=== PATIENT | male | born 1950 | race Caucasian/White ===

== ENCOUNTER 2017-04-14 12:17 | Emergency (ER) | payer OTHER ==
[2017-04-14 12:18] VITALS: BMI 32.3
[2017-04-14 12:27] VITALS: BP 106/63; PULSE 72; TEMP 97.7; O2SAT 97
--- NOTE | 2017-04-14 13:13 | C.PDOC ---
History Of Present Illness NEW ONSET "LUMP" IN RECTAL AREA X SEV DAYS. +PAIN TO AREA. NO BLEEDING. DENIES CONSTIPATION, ABD PAIN, OTHER SX EXAM NAD RECTAL +HEMORRHOID NONTHROMBOSED. NO BLEED. REMAINDER NEG Time Seen by Provider: 04/14/17 13:04 Chief Complaint (Nursing): GI Problem History Per: Patient History/Exam Limitations: no limitations Onset/Duration Of Symptoms: Days (several) Past Medical History Reviewed: Historical Data, Nursing Documentation, Vital Signs Vital Signs: Last Vital Signs Temp 97.7 F 04/14/17 12:24 Pulse 72 04/14/17 12:24 Resp 18 04/14/17 12:24 BP 106/63 04/14/17 12:24 Pulse Ox 97 04/14/17 13:13 - Medical History PMH: Hypercholesterolemia Surgical History: Endoscopy - [facility] Procedures COLONOSCOPY (02/11/14) ENDOSC POLYPECTOMY OF LG INTEST (10/13/12) ESOPHAGOGASTRODUODENOSCOPY [EGD] W/CLOSED BIOPSY (07/19/13) Family History: States: No Known Family Hx - Social History Hx Alcohol Use: No Hx Substance Use: No - Immunization History Hx Tetanus Toxoid Vaccination: No Hx Influenza Vaccination: No Hx Pneumococcal Vaccination: No Review Of Systems Except As Marked, All Systems Reviewed And Found Negative. Gastrointestinal: Positive for: Rectal Pain (rectal pain with "lump"). Negative for: Vomiting, Abdominal Pain, Diarrhea, Constipation Genitourinary: Negative for: Dysuria Neurological: Negative for: Weakness Physical Exam - Physical Exam Appears: Non-toxic, No Acute Distress Skin: Warm, Dry, No Rash Head: Atraumatic, Normacephalic Oral Mucosa: Moist Respiratory: Normal Breath Sounds Rectal: Hemorrhoids (nonthrombosed, no bleeding) Back: Normal Inspection, No CVA Tenderness Extremity: Normal ROM, No Swelling Neurological/Psych: Oriented x3, Normal Speech, Normal Motor ED Course And Treatment O2 Sat by Pulse Oximetry: 97 (RA) Pulse Ox Interpretation: Normal Disposition Counseled Patient/Family Regarding: Diagnosis, Need For Followup, Rx Given - Disposition Referrals: YOUR,PMD [Other] Disposition: HOME/ ROUTINE Disposition Time: 13:11 Condition: GOOD Prescriptions: Docusate Sodium [Colace] 100 mg PO BID PRN #30 capsule PRN Reason: Constipation Hydrocortisone [Proctosol-Hc] 28.35 gm TP TID PRN #1 [email or web address] PRN Reason: Hemorrhoids Instructions: Hemorrhoids (ED) Forms: [facility] (Italian) - Clinical Impression Clinical Impression: Hemorrhoids - Scribe Statement The provider has reviewed the documentation as recorded by the Lazaroibe Zhanna Peter Provider Attestation: All medical record entries made by the Lazaroibxochitl were at my direction and personally dictated by me. I have reviewed the chart and agree that the record accurately reflects my personal performance of the history, physical exam, medical decision making, and the department course for this patient. I have also personally directed, reviewed, and agree with the discharge instructions and disposition.
[2017-04-14 13:26] VITALS: RESP 16
== END 2017-04-14 13:25 | disposition home or self-care (01) ==
LOC: C.ER 12:17
DX: K64.9 Unspecified hemorrhoids (principal)

== ENCOUNTER 2018-04-06 12:00 | Emergency (ER) | payer OTHER ==
[2018-04-06 12:00] VITALS: BMI 32.3
[2018-04-06 12:10] VITALS: RESP 18
[2018-04-06 13:01] LABS: EOS % 0.1 % (0.0-4.0); HEMOGLOBIN 14.4 g/dL (12.0-18.0); LYMPH # 0.8 K/uL (1.0-4.3); MONO # 0.6 K/uL (0.0-0.8); NEUT # 0.8 K/uL (1.8-7.0); WHITE BLOOD COUNT 2.3 K/uL (4.8-10.8)
--- NOTE | 2018-04-06 13:01 | RAD ---
Date of service: 04/06/2018 HISTORY: cough COMPARISON: 01/20/2017 TECHNIQUE: Chest PA and lateral FINDINGS: LUNGS: No active pulmonary disease. PLEURA: No significant pleural effusion identified. No pneumothorax apparent. CARDIOVASCULAR: No aortic atherosclerotic calcification present. Normal cardiac size. No pulmonary vascular congestion. OSSEOUS STRUCTURES: No significant abnormalities. VISUALIZED UPPER ABDOMEN: Normal. OTHER FINDINGS: None. IMPRESSION: No active disease.
[2018-04-06 13:08] LABS: SQUAMOUS EPITHIAL 1 /hpf (0-5); URINE BILIRUBIN NEGATIVE (NEGATIVE); URINE BLOOD NEGATIVE (NEGATIVE); URINE CLARITY Hazy (Clear); URINE COLOR Amber (YELLOW); URINE GLUCOSE (UA) NORMAL (Normal); URINE LEUKOCYTE ESTERASE NEG Leu/uL (Negative); URINE PROTEIN NEGATIVE (NEGATIVE); URINE UROBILINOGEN NORMAL mg/dL (0.2-1.0)
[2018-04-06 13:13] LABS: BASO % 0.2 % (0.0-2.0); LYMPH % 36.3 % (20.0-40.0); MEAN CELL VOLUME 90.9 fL (80.0-94.0); MEAN CORPUSCULAR HEMOGLOBIN 29.9 pg (27.0-31.0); MEAN CORPUSCULAR HGB CONC 32.9 g/dL (33.0-37.0); MEAN PLATELET VOLUME 7.4 fL (7.2-11.7); MONO % 28.3 % (0.0-10.0); NEUT % 35.1 % (50.0-75.0); PLATELET COUNT 159 K/uL (130-400); RBC 4.82 Mil/uL (4.40-5.90); RED CELL DISTRIBUTION WIDTH 13.6 % (11.5-14.5)
[2018-04-06 13:19] LABS: ALB/GLOB RATIO 1.5 (1.0-2.1); ALBUMIN 4.3 g/dL (3.5-5.0); ALT/SGPT 41 U/L (21-72); AST/SGOT 34 U/L (17-59); BLOOD UREA NITROGEN 16 mg/dL (9-20); CALCIUM 9.1 mg/dl (8.6-10.4); GFR NON-AFRICAN AMERICAN > 60
[2018-04-06 13:28] LABS: B-TYPE NATRIURETIC PEPTIDE 22.1 pg/mL (0-900)
--- NOTE | 2018-04-06 13:50 | C.PDOC ---
History Of Present Illness 67 y/o male presents to the ER complaining of cough and nasal congestion which has been present for the past 3 days. Patient states that the cough is non- productive. Patient reports that he has some chest discomfort. He notes that he has chest discomfort after he coughs. Denies having SOB, fever, chills, recent travel, hx of diabetes, HTN, PE/DVT, and family history of heart disease. Time Seen by Provider: 04/06/18 12:19 Chief Complaint (Nursing): Chest Pain History Per: Patient History/Exam Limitations: no limitations Onset/Duration Of Symptoms: Days Current Symptoms Are (Timing): Still Present Severity: Moderate Past Medical History Reviewed: Historical Data, Nursing Documentation, Vital Signs Vital Signs: Last Vital Signs Temp 98.1 F 04/06/18 12:07 Pulse 69 04/06/18 12:35 Resp 18 04/06/18 12:35 BP 119/70 04/06/18 12:35 Pulse Ox 96 04/06/18 12:07 - Medical History PMH: Hypercholesterolemia Denies: Chronic Kidney Disease Surgical History: Endoscopy - [facility] Procedures COLONOSCOPY (02/11/14) ENDOSC POLYPECTOMY OF LG INTEST (10/13/12) ESOPHAGOGASTRODUODENOSCOPY [EGD] W/CLOSED BIOPSY (07/19/13) Family History: States: No Known Family Hx - Social History Hx Alcohol Use: No Hx Substance Use: No - Immunization History Hx Tetanus Toxoid Vaccination: No Hx Influenza Vaccination: No Hx Pneumococcal Vaccination: No Review Of Systems Except As Marked, All Systems Reviewed And Found Negative. Constitutional: Negative for: Fever, Chills ENT: Positive for: Nose Congestion Cardiovascular: Positive for: Chest Pain Respiratory: Positive for: Cough. Negative for: Shortness of Breath Gastrointestinal: Negative for: Nausea, Vomiting Physical Exam - Physical Exam Appears: Non-toxic, No Acute Distress Skin: Normal Color, Warm, Dry Head: Atraumatic, Normacephalic Eye(s): bilateral: Normal Inspection Nose: Normal Oral Mucosa: Moist Throat: Normal, No Erythema, No Exudate Neck: Supple Chest: Symmetrical Cardiovascular: Rhythm Regular Respiratory: Normal Breath Sounds, No Rales, No Rhonchi, No Wheezing Gastrointestinal/Abdominal: Soft, No Tenderness, No Guarding, No Rebound Neurological/Psych: Oriented x3, Normal Speech ED Course And Treatment - Laboratory Results Result Diagrams: 04/06/18 12:57 04/06/18 12:57 ECG: Interpreted By Me, Viewed By Me ECG Rhythm: Sinus Rhythm Interpretation Of ECG: NSR with normal intervals, left axis deviation, and no ST/T wave abnormalities Rate From EC O2 Sat by Pulse Oximetry: 96 (RA) Pulse Ox Interpretation: Normal - Radiology CXR: Interpreted by Me, Viewed By Me CXR Interpretation: Yes: No Acute Disease Medical Decision Making Medical Decision Making: Assessment: Chest Pain Plan: --Lab --ECG --CXR --UA Updates: 14:08 Patient has ANC 800. Patient has been administered for Aspirin. 14:15 Case discussed with PMD .Case discussed with hospitalist Dr.N Arredondo.Patient has been admitted to [facility] under Dr. Sarah Arredondo. Disposition Discussed With Dr.: Sterling Arredondo Doctor Will See Patient In The: Hospital Counseled Patient/Family Regarding: Studies Performed, Diagnosis - Disposition Disposition: HOSPITALIZED Disposition Time: 14:16 Condition: FAIR - Clinical Impression Clinical Impression: Chest pain, Leukopenia - Scribe Statement The provider has reviewed the documentation as recorded by the Lazaroibe Karla Colon Provider Attestation: All medical record entries made by the Lazaroibe were at my direction and personally dictated by me. I have reviewed the chart and agree that the record accurately reflects my personal performance of the history, physical exam, medical decision making, and the department course for this patient. I have also personally directed, reviewed, and agree with the discharge instructions and disposition.
[2018-04-06] MEDS ORDERED: Aspirin 325 mg EC Tablets PO STA (14:08)
[2018-04-06] MEDS ORDERED: Aspirin 325 mg EC Tablets PO ONE (14:17)
[2018-04-06 14:21] LABS: LYMPHOCYTE 42 % (20-40); MONOCYTE 18 % (0-10); NEUTROPHIL 40 % (50-75); PLATELET ESTIMATE NORMAL (NORMAL); TOTAL CELLS COUNTED 100
--- NOTE | 2018-04-06 14:43 | CP.PCM.HP ---
History of Present Illness - History of Present Illness History of Present Illness: PGY-[address] Galvez Patient is a 67 year old male with PMHx HLD, BPH who presents with cough/congestion and chest pain that resolved. Patient states he has had the "flu" since Friday, and has been experiencing dry cough and general myalgias. Today he states he had some chest pain that he could not exactly described, but did notice it going to the back as well. He does think it was maybe made worse moving arm around. Chest pain has resolved at present. Denies sick contacts or recent travel. Denies fevers. PMHx: BPH, hypercholesteremia, inguinal hernia Surgical History: Colonoscopy (02/11/14), EGD Polypectomy (10/13/12), EGD with bx (07/19/13) Allergies: Flagyl Social: Never smoker or drinking, no drug use. Lives alone, works at [employer] Family Hx: Dad - HTN, prostate issue Medications: Atorvastatin 10mg HS, tamsulosin 0.4mg PO BID, finasteride 5 mg daily, meloxicam 25mg PO daily PMD: Dr. Gates (patient's cousin) Present on Admission - Present on Admission Any Indicators Present on Admission: No Review of Systems - Constitutional Constitutional: Malaise. absent: Chills, Fever - EENT Ears: absent: Disequilibrium, Dizziness Nose/Mouth/Throat: absent: Nasal Congestion, Nasal Discharge - Cardiovascular Cardiovascular: Chest Pain (resolved), Chest Pain at Rest (resolved). absent: Chest Pain with Activity, Edema, Pain Radiating to Arm/Neck/Jaw, Palpitations - Respiratory Respiratory: Cough, Chest Congestion. absent: Dyspnea, Hemoptysis, Wheezing, Excessive Mucous Production, Change in Mucous Color - Gastrointestinal Gastrointestinal: absent: Abdominal Pain, Belching, Bloating, Constipation - Genitourinary Genitourinary: Urinary Hesitance (hx BPH). absent: Dysuria - Musculoskeletal Musculoskeletal: Myalgias. absent: Back Pain - Neurological Neurological: absent: Abnormal Gait, Dizziness, Numbness, Headaches - Psychiatric Psychiatric: absent: Anxiety, Depression - Endocrine Endocrine: absent: Palpitations, Polyuria Past Patient History - Infectious Disease Hx of Infectious Diseases: None - Past Medical History & Family History Past Medical History?: Yes - Past Social History Smoking Status: Never Smoked - CARDIAC Hx Hypercholesterolemia: Yes - PULMONARY Hx Respiratory Disorders: No - NEUROLOGICAL Hx Neurological Disorder: No - HEENT Hx HEENT Problems: No - RENAL Hx Chronic Kidney Disease: No - ENDOCRINE/METABOLIC Hx Endocrine Disorders: No - HEMATOLOGICAL/ONCOLOGICAL Hx Blood Disorders: No - INTEGUMENTARY Hx Dermatological Problems: No - MUSCULOSKELETAL/RHEUMATOLOGICAL Hx Musculoskeletal Disorders: No - GASTROINTESTINAL Hx Gastrointestinal Disorders: No - GENITOURINARY/GYNECOLOGICAL Hx Genitourinary Disorders: Yes Hx Prostate Problems: Yes (ENLARGED) - PSYCHIATRIC Hx Substance Use: No - SURGICAL HISTORY Other/Comment: colonscopy 03/2017 - ANESTHESIA Hx Anesthesia: Yes Hx Anesthesia Reactions: No Hx Malignant Hyperthermia: No Meds Home Medications: Home Medication List Medication Instructions Recorded Confirmed Type Acetaminophen [Tylenol 325mg tab] 650 mg PO Q6 PRN tab 04/06/18 Rx Oseltamivir Cap [Tamiflu Cap] 75 mg PO BID capsule 04/06/18 Rx Oseltamivir Phosphate [Tamiflu] 75 mg PO BID #14 capsule 04/06/18 Rx Oseltamivir Phosphate [Tamiflu] 75 mg PO BID #14 capsule 04/06/18 Rx Allergies/Adverse Reactions: Allergies Allergy/AdvReac Type Severity Reaction Status Date / Time metronidazole [From Flagyl] Allergy Verified 02/02/17 11:14 Physical Exam - Head Exam Head Exam: ATRAUMATIC, NORMAL INSPECTION - Eye Exam Eye Exam: EOMI, Normal appearance - ENT Exam ENT Exam: Mucous Membranes Moist - Respiratory Exam Respiratory Exam: Clear to Auscultation Bilateral, NORMAL BREATHING PATTERN. absent: Rhonchi, Wheezes - Cardiovascular Exam Cardiovascular Exam: REGULAR RHYTHM, RRR, +S1, +S2 Additional comments: No chest pain at time of exam, no tenderness to palpation - GI/Abdominal Exam GI & Abdominal Exam: Normal Bowel Sounds, Soft. absent: Tenderness - Extremities Exam Extremities exam: Positive for: normal inspection. Negative for: pedal edema, tenderness - Neurological Exam Neurological exam: Alert, CN II-XII Intact, Oriented x3 - Psychiatric Exam Psychiatric exam: Normal Affect, Normal Mood - Skin Skin Exam: Dry, Intact, Normal Color Results - Vital Signs Recent Vital Signs: Last Vital Signs Temp 98.1 F 04/06/18 14:19 Pulse 62 04/06/18 14:19 Resp 18 04/06/18 14:19 BP 131/78 04/06/18 14:19 Pulse Ox 96 04/06/18 14:40 - Labs Result Diagrams: 04/06/18 12:57 04/06/18 12:57 Labs: Laboratory Results - last 24 hr 04/06/18 04/06/18 04/06/18 12:57 12:57 12:57 WBC 2.3 L RBC 4.82 Hgb 14.4 Hct 43.8 MCV 90.9 MCH 29.9 MCHC 32.9 L RDW 13.6 Plt Count 159 MPV 7.4 Neut % (Auto) 35.1 L Lymph % (Auto) 36.3 [place] % (Auto) 28.3 H Eos % (Auto) 0.1 Baso % (Auto) 0.2 Neut # (Auto) 0.8 L Lymph # (Auto) 0.8 L [place] # (Auto) 0.6 Eos # (Auto) 0.0 Baso # (Auto) 0.0 Neutrophils % (Manual) 40 L Lymphocytes % (Manual) 42 H Monocytes % (Manual) 18 H Platelet Estimate Normal RBC Morphology Normal Sodium 136 Potassium 4.5 Chloride 99 Carbon Dioxide 29 Anion Gap 12 BUN 16 Creatinine 0.7 L Est GFR ( Amer) > 60 Est GFR (Non-Af Amer) > 60 Random Glucose 115 H Calcium 9.1 Total Bilirubin 0.7 AST 34 ALT 41 Alkaline Phosphatase 60 Troponin I < 0.0120 NT-Pro-B Natriuret Pep 22.1 Total Protein 7.1 Albumin 4.3 Globulin 2.9 Albumin/Globulin Ratio 1.5 Urine Color [place] Urine Clarity Hazy Urine pH 5.0 Ur Specific [place] 1.032 H Urine Protein Negative Urine Glucose (UA) Normal Urine Ketones Trace Urine Blood Negative Urine Nitrate Negative Urine Bilirubin Negative Urine Urobilinogen Normal Ur Leukocyte Esterase Neg Urine WBC (Auto) 2 Urine RBC (Auto) 2 Ur Squamous Epith Cells 1 Assessment & Plan - Assessment and Plan (Free Text) Assessment: 67 year old male with chest pain, influenza A 1) Influenza A - Positive influenza A test - Patient signed out AMA from ED - Given rx 7 days Tamiflu 7mg PO BID 2) Sinus arrythmia on initial EKG - Repeat EKG normal sinus. Enzymes negative. - Patient signed out AMA. Advised to follow up immediately with PMD 3) PPx - Patient AMA Discussed with Dr. Lenny Contreras, PGY-1
[2018-04-06 16:16] VITALS: BP 136/83; PULSE 68; TEMP 98.2
--- NOTE | 2018-04-06 16:20 | CP.PCM.DIS ---
Provider - Provider Date of Admission: 04/06/18 14:15 Attending physician: Sterling Arredondo MD Time Spent in preparation of Discharge (in minutes): 45 Diagnosis - Discharge Diagnosis (1) Influenza A Status: Acute (2) Chest pain Status: Acute Hospital Course - Lab Results Lab Results: Most Recent Lab Values WBC 2.3 K/uL (4.8-10.8) L 04/06/18 12:57 RBC 4.82 Mil/uL (4.40-5.90) 04/06/18 12:57 Hgb 14.4 g/dL (12.0-18.0) 04/06/18 12:57 Hct 43.8 % (35.0-51.0) 04/06/18 12:57 MCV 90.9 fL (80.0-94.0) 04/06/18 12:57 MCH 29.9 pg (27.0-31.0) 04/06/18 12:57 MCHC 32.9 g/dL (33.0-37.0) L 04/06/18 12:57 RDW 13.6 % (11.5-14.5) 04/06/18 12:57 Plt Count 159 K/uL (130-400) 04/06/18 12:57 MPV 7.4 fL (7.2-11.7) 04/06/18 12:57 Neut % (Auto) 35.1 % (50.0-75.0) L 04/06/18 12:57 Lymph % (Auto) 36.3 % (20.0-40.0) 04/06/18 12:57 [place]nn % (Auto) 28.3 % (0.0-10.0) H 04/06/18 12:57 Eos % (Auto) 0.1 % (0.0-4.0) 04/06/18 12:57 Baso % (Auto) 0.2 % (0.0-2.0) 04/06/18 12:57 Neut # (Auto) 0.8 K/uL (1.8-7.0) L 04/06/18 12:57 Lymph # (Auto) 0.8 K/uL (1.0-4.3) L 04/06/18 12:57 Glynn # (Auto) 0.6 K/uL (0.0-0.8) 04/06/18 12:57 Eos # (Auto) 0.0 K/uL (0.0-0.7) 04/06/18 12:57 Baso # (Auto) 0.0 K/uL (0.0-0.2) 04/06/18 12:57 Neutrophils % (Manual) 40 % (50-75) L 04/06/18 12:57 Lymphocytes % (Manual) 42 % (20-40) H 04/06/18 12:57 Monocytes % (Manual) 18 % (0-10) H 04/06/18 12:57 Platelet Estimate Normal (NORMAL) 04/06/18 12:57 RBC Morphology Normal 04/06/18 12:57 Sodium 136 mmol/L (132-148) 04/06/18 12:57 Potassium 4.5 mmol/L (3.6-5.2) 04/06/18 12:57 Chloride 99 mmol/L (98-107) 04/06/18 12:57 Carbon Dioxide 29 mmol/L (22-30) 04/06/18 12:57 Anion Gap 12 (10-20) 04/06/18 12:57 BUN 16 mg/dL (9-20) 04/06/18 12:57 Creatinine 0.7 mg/dL (0.8-1.5) L 04/06/18 12:57 Est GFR ( Amer) > 60 04/06/18 12:57 Est GFR (Non-Af Amer) > 60 04/06/18 12:57 Random Glucose 115 mg/dL (75-110) H 04/06/18 12:57 Calcium 9.1 mg/dl (8.6-10.4) 04/06/18 12:57 Total Bilirubin 0.7 mg/dL (0.2-1.3) 04/06/18 12:57 AST 34 U/L (17-59) 04/06/18 12:57 ALT 41 U/L (21-72) 04/06/18 12:57 Alkaline Phosphatase 60 U/L (38-126) 04/06/18 12:57 Troponin I < 0.0120 ng/mL (0.00-0.120) 04/06/18 12:57 NT-Pro-B Natriuret Pep 22.1 pg/mL (0-900) 04/06/18 12:57 Total Protein 7.1 g/dL (6.3-8.3) 04/06/18 12:57 Albumin 4.3 g/dL (3.5-5.0) 04/06/18 12:57 Globulin 2.9 gm/dL (2.2-3.9) 04/06/18 12:57 Albumin/Globulin Ratio 1.5 (1.0-2.1) 04/06/18 12:57 Urine Color [place] (YELLOW) 04/06/18 12:57 Urine Clarity Hazy (Clear) 04/06/18 12:57 Urine pH 5.0 (5.0-8.0) 04/06/18 12:57 Ur Specific [place] 1.032 (1.003-1.030) H 04/06/18 12:57 Urine Protein Negative mg/dL (NEGATIVE) 04/06/18 12:57 Urine Glucose (UA) Normal mg/dL (Normal) 04/06/18 12:57 Urine Ketones Trace mg/dL (NEGATIVE) 04/06/18 12:57 Urine Blood Negative (NEGATIVE) 04/06/18 12:57 Urine Nitrate Negative (NEGATIVE) 04/06/18 12:57 Urine Bilirubin Negative (NEGATIVE) 04/06/18 12:57 Urine Urobilinogen Normal mg/dL (0.2-1.0) 04/06/18 12:57 Ur Leukocyte Esterase Neg Lavinia/uL (Negative) 04/06/18 12:57 Urine WBC (Auto) 2 /hpf (0-5) 04/06/18 12:57 Urine RBC (Auto) 2 /hpf (0-3) 04/06/18 12:57 Ur Squamous Epith Cells 1 /hpf (0-5) 04/06/18 12:57 Influenza Typ A,B (EIA) Pos for influenza a (NEGATIVE) H 04/06/18 15:17 - Hospital Course Hospital Course: HPI Patient is a 67 year old male with PMHx HLD, BPH who presents with cough/congestion and chest pain that resolved. Patient states he has had the "flu" since Friday, and has been experiencing dry cough and general myalgias. Today he states he had some chest pain that he could not exactly described, but did notice it going to the back as well. He does think it was maybe made worse moving arm around. Chest pain has resolved at present. Denies sick contacts or recent travel. Denies fevers. Hospital course Patient left against medical advice directly from the emergency room. He was advised of the risks including arrythmia, heart attack, PE, sepsis, cardiac or respiratory arrest, or sudden . See history and physical for complete details. Imaging Chest X-ray 04/06: No acute findings Discharge Exam - Head Exam Head Exam: ATRAUMATIC, NORMAL INSPECTION - Additional Findings Additional findings: See History and Physical for complete Physical Exam - patient left immediately from ER Discharge Plan - Discharge Medications Prescriptions: Oseltamivir Phosphate [Tamiflu] 75 mg PO BID #14 capsule Oseltamivir Phosphate [Tamiflu] 75 mg PO BID #14 capsule - Follow Up Plan Condition: FAIR Disposition: AGAINST MEDICAL ADVICE Additional Instructions: Tamiflu 75 mg by mouth twice a day for 7 days
[2018-04-06 16:27] VITALS: O2SAT 96
--- NOTE | 2018-04-10 16:53 | CARD ---
APPROVED REPORT Date of service: 04/06/2018 EKG Measurement Heart [id number] <Conclusion> Normal sinus rhythm Left axis deviation Abnormal ECG
--- NOTE | 2018-04-10 16:54 | CARD ---
APPROVED REPORT Date of service: 04/06/2018 EKG Measurement Heart [id number] <Conclusion> Normal sinus rhythm Left axis deviation Minimal voltage criteria for LVH, may be normal variant Abnormal ECG
== END 2018-04-06 17:03 | disposition left against medical advice (07) ==
LOC: C.ER 12:00 → C.9E 14:15 → UNDOADMOB 14:15
DX: J10.1 Influenza due to other identified influenza virus with other respiratory manifestations (principal); R07.9 Chest pain, unspecified; D72.819 Decreased white blood cell count, unspecified; E78.5 Hyperlipidemia, unspecified; N40.0 Benign prostatic hyperplasia without lower urinary tract symptoms